=== PATIENT | female | born 1945 | race Two or more races ===

== ENCOUNTER 2024-04-29 05:25 | Day surgery (SDC) | payer OTHER ==
[2024-04-25 09:27] VITALS: BP 150/82
[2024-04-25 09:30] LABS: HEMATOCRIT 43.5 % (36.0-45.00); HEMOGLOBIN 14.7 g/dL (12.0-15.00); MEAN CORPUSCULAR HEMOGLOBIN 30.7 pg (27.00-32.0); MEAN CORPUSCULAR HGB CONC 33.7 g/dl (32.0-36.0); PLATELET COUNT 252 K/uL (150-450); RED BLOOD COUNT 4.78 M/uL (4.00-6.00); RED CELL DISTRIBUTION WIDTH 13.4 % (11.5-14.5)
[2024-04-25 09:35] LABS: URINE APPEARANCE Clear; URINE BILIRRUBIN Negative (NEGATIVE); URINE BLOOD Negative; URINE COLOR Yellow; URINE GLUCOSE Negative (NEGATIVE); URINE KETONE Negative (NEGATIVE); URINE LEUKOCYTE Negative; URINE NITRATE Negative; URINE PROTEIN Negative (NEGATIVE)
[2024-04-25 09:39] LABS: URINE BACTERIA 31.8 uL (0.0-1933); URINE RBC 6.7 uL (0.0-20.8)
[2024-04-25 09:45] LABS: URINE EPITHELIAL CELLS 1.1 uL (0.0-38.8)
[2024-04-25 09:51] LABS: INR 1.04; PARTIAL THROMBOPLASTIN TIME 30.2 SECONDS (22.0-34.0); PROTHROMBIN TIME 11.3 SECONDS (9.0-11.5)
[2024-04-25 10:34] LABS: ALBUMIN 3.8 gm/dL (3.4-5.0); BILIRUBIN TOTAL 0.57 mg/dL (0.3-1.2); CALCIUM 9.6 mg/dL (8.5-10.1); CREATININE SERUM 0.72 mg/dL (0.55-1.02); GFR 78.54; GLOBULINA 3.4 G/DL (2.4-3.5); POTASSIUM 4.04 mEq/L (3.5-5.1); TOTAL PROTEIN 7.2 gm/dL (6.4-8.2)
[~2024-04-29] VITALS: Ht 162.6 cm; Wt 83.0 kg
[~2024-04-29 05:25] MED LIST: HYDRALAZINE HCL25 MG PO; HYDRODIURIL12.5 MG PO; LISINOPRIL40 MG PO; REPAGLINIDE1 MG PO; ROSUVASTATIN CA20 MG PO; ZETIA10 MG PO
[2024-04-29] MEDS ORDERED: KETOROLAC TROMETHAMINE 30 MG VIAL IV ONE (12:00)
[2024-04-29] MEDS ORDERED: ONDANSETRON HCL 2 MG/ML VIAL IV ONE (12:00)
== END 2024-04-29 16:00 | disposition home or self-care (01) ==
LOC: CIR.AMB 05:25
PROVIDERS: ATTEND Obstetrics & Gynecology
DX: N95.0 Postmenopausal bleeding (principal); N85.8 Other specified noninflammatory disorders of uterus